=== PATIENT | male | born 1970 | race Caucasian/White ===

== ENCOUNTER 2025-03-21 18:41 | Emergency (ER) | payer BC ==
[~2025-03-21] VITALS: Ht 172.7 cm; Wt 87.5 kg
[2025-03-21] MEDS ORDERED: ASPI81TA26 PO (18:50)
[2025-03-21] MEDS ORDERED: LISI10TA22 PO (18:50)
[2025-03-21] MEDS ORDERED: metoprolol PO (18:50)
[2025-03-21] MEDS ORDERED: CEPH500C PO (21:21)
[2025-03-21] MEDS: CEPHALEXIN 500 MG CAP PO ONE (21:34)
[2025-03-21 21:37] VITALS: BP 124/90; TEMP 98.2; O2SAT 98
== END 2025-03-21 21:41 | disposition home or self-care (01) ==
LOC: M ED 18:41
DX: L03.115 Cellulitis of right lower limb (principal); I10 Essential (primary) hypertension; Z79.82 Long term (current) use of aspirin; Z79.899 Other long term (current) drug therapy; Z79.2 Long term (current) use of antibiotics